=== PATIENT | female | born 1980 ===

== ENCOUNTER 2018-11-03 01:02 | Emergency (ER) | payer MEDICAID ==
[~2018-11-03] VITALS: Ht 177.8 cm; Wt 101.4 kg
[2018-11-03 01:30] VITALS: BP 128/75; Ht 177.8 cm; Wt 101.4 kg
[2018-11-03] MEDS ORDERED: LYRICA75 MG (01:31)
[2018-11-03] MEDS ORDERED: BUSPAR5 MG (01:31)
[2018-11-03] MEDS ORDERED: MOBIC7.5 MG (01:31)
[2018-11-03] MEDS ORDERED: CYCLOBENZAPRINE10 MG (01:32)
[2018-11-03] MEDS ORDERED: CYCLOBENZAPRINE10 MG PO (01:56)
[2018-11-03] MEDS ORDERED: DICLOFENAC SODI50 MG PO (01:56)
== END 2018-11-03 02:27 | disposition left against medical advice (07) ==
LOC: D.ER 01:02
DX: S61.411A Laceration without foreign body of right hand, initial encounter (principal); W18.30XA Fall on same level, unspecified, initial encounter; Y92.019 Unspecified place in single-family (private) house as the place of occurrence of the external cause